=== PATIENT | female | born 1995 | race African-American/Black ===

== ENCOUNTER 2017-10-21 09:05 | Emergency (ER) | payer OTHER ==
[2017-10-21 09:54] LABS: BILIRUBIN,URINE NEGATIVE (NEGATIVE); GLUCOSE, URINE (UA) NEGATIVE (NEGATIVE); KETONES,URINE (UA) NEGATIVE (NEGATIVE); LEUKOCYTE ESTERASE, URINE NEGATIVE (NEGATIVE); NITRITE,URINE NEGATIVE (NEGATIVE); OCCULT BLOOD,URINE NEGATIVE (NEGATIVE); PROTEIN,URINE NEGATIVE (NEGATIVE); UROBILINOGEN,URINE 0.2 (NORMAL) E.U./dL (NORMAL)
[2017-10-21 09:58] LABS: CLARITY,URINE CLEAR (CLEAR)
--- NOTE | 2017-10-21 10:11 | ED Physician Documentation ---
History of Present Illness - Stated complaint Stated Complaint: FEMALE -6 WKS - Chief complaint Chief Complaint: Abd Pain - Additonal information Additional information: hx from pt 22 f AD Prien miscarriage approx 2 years ago LMP 09/08/17 + HCG to ED with two weeks light spotting and cramping no prenantal care yet no fever + NV Review of Systems Constitutional: denies: Fever, Chills Cardiac: denies: Chest pain / pressure Respiratory: denies: Dyspnea GI: reports: Abdominal Pain, Nausea, Vomiting : reports: Vaginal bleeding, Now EGA PD PAST MEDICAL HISTORY - Past Medical History Past Medical History: No - Past Surgical History Past Surgical History: No - Present Medications Home Medications: Ambulatory Orders Medication Instructions Recorded Confirmed Pnv No.121/Iron/Folic Acid 1 each PO DAILY #30 tablet 10/21/17 [ Multivitamin Tablet] - Allergies Allergies/Adverse Reactions: Allergies Allergy/AdvReac Type Severity Reaction Status Date / Time No Known Drug Allergies Allergy Verified 10/21/17 09:17 - Social History Does the pt smoke?: No Smoking Status: Never smoker PD ED PE NORMAL - Vitals Vital signs reviewed: Yes - Cardiac Cardiac: RRR - Respiratory Respiratory: No respiratory distress, Clear bilaterally - Abdomen Abdomen: Soft, Other (TTP low abd s rebound or gaurding) - Neuro Neuro: Alert and oriented X 3 Results - Vitals Vitals: Vital Signs - 24 hr 10/21/17 10/21/17 09:13 10:53 Temperature 36.7 C Heart Rate 78 63 Respiratory 17 18 Rate Blood Pressure 113/63 108/67 O2 Saturation 100 100 Oxygen O2 Source Room air - Labs Labs: Laboratory Tests 10/21/17 10/21/17 10/21/17 09:35 10:15 10:15 HCG, Quant 958003.00 Urine Color YELLOW Urine Clarity CLEAR Urine pH 7.0 Ur Specific [place] <=1.005 Urine Protein NEGATIVE Urine Glucose (UA) NEGATIVE Urine Ketones NEGATIVE Urine Occult Blood NEGATIVE Urine Nitrite NEGATIVE Urine Bilirubin NEGATIVE Urine Urobilinogen 0.2 (NORMAL) Ur Leukocyte Esterase NEGATIVE Ur Microscopic Review NOT INDICATED Urine Culture Comments NOT INDICATED Blood Type B POSITIVE - Rads (name of study) OB sono Radiology: See rad report (IUP twins with FHR, small perigastational hemorrhage fetus Am 6+3) PD MEDICAL DECISION MAKING - ED course ED course: AZIZA performed issue identified= twin IUP with small perigestational hemorrhage no life limb vision threatening infection or injury identified - no ectopic, no heavy bleeding or infection on exam cannnot prevent if progress to miscarriage d/w pt feel pt stable and safe for dc - Sepsis Event Vital Signs: Vital Signs - 24 hr 10/21/17 10/21/17 09:13 10:53 Temperature 36.7 C Heart Rate 78 63 Respiratory 17 18 Rate Blood Pressure 113/63 108/67 O2 Saturation 100 100 Oxygen O2 Source Room air Departure - Departure Disposition: Home, Self Care Clinical Impression: Threatened miscarriage Twin Qualifiers: Multiple gestation type: unspecified Trimester: first trimester Qualified Code( s): O30.001 - Twin , unspecified number of placenta and unspecified number of amniotic sacs, first trimester Condition: Good Instructions: ED Care, ED Miscarriage Poss Follow-Up: MILAN Devang Rodríguez [Provider Group] Prescriptions: Pnv No.121/Iron/Folic Acid [ Multivitamin Tablet] 1 each PO DAILY #30 tablet Comments: You are with twins You are 6 weeks and 3 days along Your blood type is B + There is a small amount of bleding around twin A - right now the fetus has a heart beat and looks fine but there is a possibility this could progress to a miscarriage - close follow up with OB at [facility] is important Take the vitamins Rest and drink plenty of fluids Follow up with your command for duty status
--- NOTE | 2017-10-21 13:42 | Ultrasound Report ---
Procedure Date: 10/21/2017 Accession Number: [id number] / [id number] Procedure: US - OB First Trimester CPT Code: FULL RESULT: EXAM: OB Transvaginal, OB First Trimester DATE: 10/21/2017 12:24 PM CLINICAL HISTORY: 6 weeks EGA pain and bleed TECHNIQUE: Real-time scanning was performed with inside outside sales representative static images obtained. COMPARISON: None FINDINGS: The patient reports a last menstrual period of 09/08/2017 for a gestational age of 6 weeks and 1 day. Within the normal appearing uterus reside to separate intrauterine gestations. A: Gestation A demonstrates a mean gestational sac diameter of 19.8 mm, estimated gestational age 6 weeks 3 days. The crown-rump length is 4.6 mm for estimated gestational age of 6 weeks 1 day. The heart rate is 114 bpm and the yolk sac measures 3 mm. There is a small perigestational hemorrhage measuring up to 7.3 mm. B: Gestation B demonstrates a mean gestational sac diameter of 17.3 mm for an estimated gestational age of 6 weeks and 0 days. The embryo demonstrates a crown-rump length of 5.7 mm for estimated gestational age of 6 weeks and 3 days. The heart rate is 110 bpm and the yolk sac measures 12 mm. No perigestational fluid collection is detected. The right ovary measures 4.3 x 3.2 x 2.7 cm for a volume of 19.4 mL and contains 2.8 x 2.1 x 2.4 cm corpus luteal cyst. IMPRESSION: There are 2 intrauterine viable gestations with estimated gestational ages of 6 weeks 3 days and 6 weeks 1 day by crown-rump length respectively. Twin A demonstrates a 7 mm. Gestational hemorrhage, close interval follow-up is recommended.
--- NOTE | 2017-10-21 13:42 | Ultrasound Report ---
Procedure Date: 10/21/2017 Accession Number: [id number] / [id number] Procedure: US - OB Transvaginal CPT Code: FULL RESULT: EXAM: OB Transvaginal, OB First Trimester DATE: 10/21/2017 12:24 PM CLINICAL HISTORY: 6 weeks EGA pain and bleed TECHNIQUE: Real-time scanning was performed with ambulatory service representative static images obtained. COMPARISON: None FINDINGS: The patient reports a last menstrual period of 09/08/2017 for a gestational age of 6 weeks and 1 day. Within the normal appearing uterus reside to separate intrauterine gestations. A: Gestation A demonstrates a mean gestational sac diameter of 19.8 mm, estimated gestational age 6 weeks 3 days. The crown-rump length is 4.6 mm for estimated gestational age of 6 weeks 1 day. The heart rate is 114 bpm and the yolk sac measures 3 mm. There is a small perigestational hemorrhage measuring up to 7.3 mm. B: Gestation B demonstrates a mean gestational sac diameter of 17.3 mm for an estimated gestational age of 6 weeks and 0 days. The embryo demonstrates a crown-rump length of 5.7 mm for estimated gestational age of 6 weeks and 3 days. The heart rate is 110 bpm and the yolk sac measures 12 mm. No perigestational fluid collection is detected. The right ovary measures 4.3 x 3.2 x 2.7 cm for a volume of 19.4 mL and contains 2.8 x 2.1 x 2.4 cm corpus luteal cyst. IMPRESSION: There are 2 intrauterine viable gestations with estimated gestational ages of 6 weeks 3 days and 6 weeks 1 day by crown-rump length respectively. Twin A demonstrates a 7 mm. Gestational hemorrhage, close interval follow-up is recommended.
[2017-10-21 14:12] VITALS: BP 140/80
== END 2017-10-21 14:12 | disposition home or self-care (01) ==
LOC: ED 09:05
DX: O20.0 Threatened abortion (principal); O30.001 Twin pregnancy, unspecified number of placenta and unspecified number of amniotic sacs, first trimester; Z3A.01 Less than 8 weeks gestation of pregnancy
CPT/HCPCS: 76801; 76817; 81001; 81003; 84702; 86900; 86901; 87086; 87491; 87591; 99283

== ENCOUNTER 2017-10-23 11:47 | Emergency (ER) | payer OTHER ==
[2017-10-23 12:42] LABS: BILIRUBIN,URINE NEGATIVE (NEGATIVE); GLUCOSE, URINE (UA) NEGATIVE (NEGATIVE); KETONES,URINE (UA) NEGATIVE (NEGATIVE); LEUKOCYTE ESTERASE, URINE NEGATIVE (NEGATIVE); NITRITE,URINE NEGATIVE (NEGATIVE); OCCULT BLOOD,URINE SMALL (NEGATIVE); PROTEIN,URINE NEGATIVE (NEGATIVE); UROBILINOGEN,URINE 0.2 (NORMAL) E.U./dL (NORMAL)
[2017-10-23 12:51] LABS: BACTERIA,URINE None Seen /HPF (None Seen); CLARITY,URINE CLEAR (CLEAR); RBC,URINE 0-5 /HPF (0-5); SQUAMOUS EPITHELIAL CELL,UR RARE Squamous (<= Few)
--- NOTE | 2017-10-23 12:53 | ED Physician Documentation ---
History of Present Illness - Stated complaint Stated Complaint: FEM BLEEDING/6 WKS - Chief complaint Chief Complaint: General - History obtained from History obtained from: Patient - History of Present Illness Timing: Today Pain level max: 0 Pain level now: 0 Improved by: nothing Worsened by: nothing - Additonal information Additional information: Patient is a 22-year-old female, 2 para 0. She was seen here 2 days ago for vaginal bleeding. Found to have a intrauterine gestation with twins. There was a eladio-gestational hemorrhage at that time. She states she has increased bleeding today. Did not pass any clots that she is aware of. Has had one prior miscarriage. Patient has not yet followed up with [facility] [employer] [facility]. Review of Systems Constitutional: denies: Fever, Chills Respiratory: denies: Cough GI: reports: Nausea. denies: Vomiting, Diarrhea : denies: Dysuria, Frequency, Hesitancy Skin: denies: Rash Musculoskeletal: denies: Neck pain, Back pain Neurologic: denies: Headache PD PAST MEDICAL HISTORY - Past Medical History Past Medical History: No - Past Surgical History Past Surgical History: No - Present Medications Home Medications: Ambulatory Orders Medication Instructions Recorded Confirmed Pnv No.121/Iron/Folic Acid 1 each PO DAILY #30 tablet 10/21/17 [ Multivitamin Tablet] - Allergies Allergies/Adverse Reactions: Allergies Allergy/AdvReac Type Severity Reaction Status Date / Time No Known Drug Allergies Allergy Verified 10/21/17 09:17 - Social History Does the pt smoke?: No Smoking Status: Never smoker Does the pt drink ETOH?: No Does the pt have substance abuse?: No - Immunizations Immunizations are current?: Yes - POLST Patient has POLST: No PD ED PE NORMAL - Vitals Vital signs reviewed: Yes - General General: Alert and oriented X 3, No acute distress - HEENT HEENT: Moist mucous membranes - Neck Neck: Supple, no meningeal sign - Cardiac Cardiac: RRR - Respiratory Respiratory: No respiratory distress, Clear bilaterally - Abdomen Abdomen: Soft, Non tender, Non distended - Female Female : Pt declined - Back Back: No CVA TTP - Derm Derm: Warm and dry - Extremities Extremities: No edema - Neuro Neuro: Alert and oriented X 3 - Psych Psych: Normal mood, Normal affect Results - Vitals Vitals: Vital Signs - 24 hr 07/10/23/17 10/23/17 11:51 13:14 15:05 Temperature 36.6 C Heart Rate 81 68 69 Respiratory 14 15 14 Rate Blood Pressure 117/75 113/59 L 108/66 O2 Saturation 98 98 100 Oxygen O2 Source Room air - Labs Labs: Laboratory Tests 10/23/17 10/23/17 10/23/17 12:20 12:46 12:46 WBC 8.8 RBC 3.76 L Hgb 13.1 Hct 37.3 MCV 99.2 H MCH 34.7 H MCHC 35.0 RDW 11.4 L Plt Count 192 MPV 9.8 Neut # (Auto) 6.0 Lymph # (Auto) 2.0 [place] # (Auto) 0.7 Eos # (Auto) 0.0 Baso # (Auto) 0.0 Absolute Nucleated RBC 0.00 Nucleated RBC % 0.0 HCG, Quant [id number] Urine Color YELLOW Urine Clarity CLEAR Urine pH 7.0 Ur Specific [place] <=1.005 Urine Protein NEGATIVE Urine Glucose (UA) NEGATIVE Urine Ketones NEGATIVE Urine Occult Blood SMALL H Urine Nitrite NEGATIVE Urine Bilirubin NEGATIVE Urine Urobilinogen 0.2 (NORMAL) Ur Leukocyte Esterase NEGATIVE Urine RBC 0-5 Urine WBC 0-3 Ur Squamous Epith Cells RARE Squamous Urine Bacteria None Seen Ur Microscopic Review INDICATED Urine Culture Comments NOT INDICATED - Rads (name of study) pelvic US Radiology: Prelim report reviewed, EMP read contemporaneously, See rad report ( Viable twin dichorionic diamniotic intrauterine at EGA 6 weeks 3 days with AUGUSTIN 06/15/2018 based on LMP. Twin A crown-rump length corresponds to a gestational age of 6 weeks 4 days and twin B crown-rump length corresponds to a gestational age of 6 weeks 2 days today, concordant with clinical dates.. Small perigestational bleed between the gestational sacs. ) PD MEDICAL DECISION MAKING - ED course Complexity details: reviewed old records (last Ed visit), reviewed results, re- evaluated patient, considered differential, d/w patient, d/w network consultant ED course: Patient is a 22-year-old female who is approximately 6 weeks with vaginal bleeding. Discussed case with Dr. Maciel, [facility] [employer] [facility] who recommends repeat ultrasound today. HCG is increasing and does appear to have a viable twin on ultrasound. Will follow up in the office on Wednesday. Results were reviewed with the patient. Patient counseled regarding signs and symptoms for which I believe and urgent re-evaluation would be necessary. Patient with good understanding of and agreement to plan and is comfortable going home at this time This document was made in part using voice recognition software. While efforts are made to proofread this document, sound alike and grammatical errors may occur. - Sepsis Event Vital Signs: Vital Signs - 24 hr 10/23/17 10/23/17 10/23/17 11:51 13:14 15:05 Temperature 36.6 C Heart Rate 81 68 69 Respiratory 14 15 14 Rate Blood Pressure 117/75 113/59 L 108/66 O2 Saturation 98 98 100 Oxygen O2 Source Room air Departure - Departure Disposition: 01 Home, Self Care Clinical Impression: Threatened miscarriage Twin Qualifiers: Multiple gestation type: unspecified Trimester: first trimester Qualified Code( s): O30.001 - Twin , unspecified number of placenta and unspecified number of amniotic sacs, first trimester Condition: Good Instructions: ED Miscarriage Poss Follow-Up: Nirali Maciel MD [Provider Admit Priv/Credential] - Within 3 Days Comments: Return if you worsen. I spoke with Dr. Maciel today and she would like you to call the OB clinic on wednesday AM and be seen wednesday or wednesday. Discharge Date/Time: 10/23/17 15:08
[2017-10-23 12:55] LABS: BASOPHILS % (AUTO) 0.5 %; EOSINOPHILS % (AUTO) 0.4 %; HGB - HEMOGLOBIN 13.1 g/dL (12.0-16.0); LYMPHOCYTES % (AUTO) 22.7 %; MEAN CORPUSCULAR HEMOGLOBIN 34.7 pg (27.0-31.0); MEAN CORPUSCULAR VOLUME 99.2 fL (81.0-99.0); MEAN PLATELET VOLUME 9.8 fL (7.9-10.8); MONOCYTES # (AUTO) 0.7 10^3/uL (0.0-1.0); MONOCYTES % (AUTO) 8.5 %; NEUTROPHILS % (AUTO) 67.9 %; PLT - PLATELET COUNT 192 10^3/uL (130-450); RED BLOOD COUNT 3.76 10^6/uL (4.20-5.40); RED CELL DISTRIBUTION WIDTH 11.4 % (12.0-15.0); WHITE BLOOD COUNT 8.8 x10^3/uL (4.8-10.8)
[2017-10-23 15:05] VITALS: BP 108/66
--- NOTE | 2017-10-23 15:19 | Ultrasound Report ---
Procedure Date: 10/23/2017 Accession Number: [id number] / [id number] Procedure: US - OB First Trimester CPT Code: FULL RESULT: EXAM: FIRST TRIMESTER OBSTETRIC ULTRASOUND - TWINS (Less than 11 weeks) EXAM DATE: 10/23/2017 02:51 PM. CLINICAL HISTORY: . Vaginal bleeding. LMP: 09/08/2017. COMPARISONS: None. TECHNIQUE: Transabdominal and transvaginal ultrasound examination with static image documentation. CLINICAL DATES: EGA 6 weeks 3 days with AUGUSTIN 06/15/2018 based on LMP 09/08/2017. ASSESSMENT: Twin intrauterine , dichorionic/diamniotic. TWIN A: Mean gestational sac diameter: 24 mm = 7 weeks 0 days. Embryo: CRL (crown-rump length) 7 mm = 6 weeks 4 days. Cardiac activity: 116 beats per minute. Yolk sac: 4 mm. Amniotic fluid: Not accurately assessed at this gestational age. Early placenta: Not visible at this gestational age. TWIN B: Mean gestational sac diameter: 15 mm = 5 weeks 5 days. Embryo: CRL (crown-rump length) 5 mm = 6 weeks 2 days. Cardiac activity: 114 beats per minute. Yolk sac: 3 mm. Amniotic fluid: Not accurately assessed at this gestational age. Early placenta: Not visible at this gestational age. Other: Small hypoechoic collection between the gestational sacs measuring 1.8 x 0.4 x 1.1 cm. MATERNAL STRUCTURES: Uterus: Retroverted. Right anterior fibroid measuring 3.4 x 2.1 x 2.6 cm. Cervix: Closed. Right Ovary/Adnexa: The ovary measures 5.6 x 3.5 x 4.2 cm, volume 4.3 cc. Contains 2 corpus luteum cysts measuring 2.2 cm and 3.2 cm, respectively. Left Ovary/Adnexa: The ovary measures 3.1 x 1.5 x 2.0 cm, volume 4.8 cc. Free Fluid: None. Other: None. IMPRESSION: 1. Viable twin dichorionic diamniotic intrauterine at EGA 6 weeks 3 days with AUGUSTIN 06/15/2018 based on LMP. 2.Twin A crown-rump length corresponds to a gestational age of 6 weeks 4 days and twin B crown-rump length corresponds to a gestational age of 6 weeks 2 days today, concordant with clinical dates.. 3. Small perigestational bleed between the gestational sacs. RADIA
== END 2017-10-23 15:08 | disposition home or self-care (01) ==
LOC: ED 11:47
DX: O20.0 Threatened abortion (principal); O30.001 Twin pregnancy, unspecified number of placenta and unspecified number of amniotic sacs, first trimester; Z3A.01 Less than 8 weeks gestation of pregnancy
CPT/HCPCS: 36415; 76801; 76830; 81001; 81003; 84702; 85025; 87086; 99283

== ENCOUNTER 2017-11-04 21:56 | Emergency (ER) | payer OTHER ==
[2017-11-04] MEDS ORDERED: METOCLOPRAMIDE 10 MG/2 ML VIAL IVP STA (22:06)
[2017-11-04] MEDS ORDERED: SODIUM CHLORIDE 0.9% 1,000 ML IV ONE (22:06)
[2017-11-04] MEDS ORDERED: ACETAMINOPHEN 500 MG TABLET PO STA (22:19)
--- NOTE | 2017-11-04 22:25 | ED Physician Documentation ---
History of Present Illness - Stated complaint Stated Complaint: 8WKS PREG/VOMITING BLOOD - Chief complaint Chief Complaint: Abd Pain - History obtained from History obtained from: Patient - Additonal information Additional information: 22-year-old female at roughly 8 weeks presents the emergency department with lower abdominal cramping and vomiting over the past several weeks. The patient denies dysuria or vaginal bleeding or vaginal discharge. The patient denies any focal area of abdominal pain. The patient does report blood streaks in her vomit occasionally. The patient reports being dehydrated. Symptoms are described as moderate. No relieving factors. No other associated symptoms. 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) - Past Surgical History Past Surgical History: Yes /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: Dilation and currettage - Present Medications Home Medications: Ambulatory Orders Medication Instructions Recorded Confirmed Pnv No.121/Iron/Folic Acid 1 each PO DAILY #30 tablet 10/21/17 [ Multivitamin Tablet] Metoclopramide [Reglan] 10 mg PO Q6H PRN #30 tablet 11/05/17 - Allergies Allergies/Adverse Reactions: Allergies Allergy/AdvReac Type Severity Reaction Status Date / Time No Known Drug Allergies Allergy Verified 11/04/17 22:01 - Social History Does the pt smoke?: No Smoking Status: Never smoker Does the pt drink ETOH?: No Does the pt have substance abuse?: No - Immunizations Immunizations are current?: Yes - POLST Patient has POLST: No PD ED PE NORMAL - General General: Alert and oriented X 3, No acute distress - HEENT HEENT: Atraumatic, PERRL, EOMI, Ears normal - Neck Neck: Supple, no meningeal sign - Cardiac Cardiac: RRR, Strong equal pulses - Respiratory Respiratory: No respiratory distress - Abdomen Abdomen: Soft, Non tender, Non distended - Derm Derm: Normal color - Extremities Extremities: No deformity, No edema - Neuro Neuro: Alert and oriented X 3, Normal speech - Psych Psych: Normal mood Results - Vitals Vitals: Vital Signs - 24 hr 11/04/17 11/05/17 21:59 00:35 Temperature 37.4 C 36.8 C Heart Rate 97 88 Respiratory 22 16 Rate Blood Pressure 126/84 H 120/72 O2 Saturation 100 98 Oxygen O2 Source Room air - Labs Labs: Laboratory Tests 11/04/17 11/04/17 11/04/17 22:04 22:10 22:30 WBC 11.3 H RBC 4.02 L Hgb 13.6 Hct 39.5 MCV 98.2 MCH 33.9 H MCHC 34.5 RDW 11.5 L Plt Count 181 MPV 10.4 Neut # (Auto) 8.8 H Lymph # (Auto) 1.6 [place] # (Auto) 0.8 Eos # (Auto) 0.0 Baso # (Auto) 0.0 Absolute Nucleated RBC 0.00 Nucleated RBC % 0.0 Sodium Potassium Chloride Carbon Dioxide Anion Gap BUN Creatinine Estimated GFR (MDRD) Glucose Calcium Total Bilirubin AST ALT Alkaline Phosphatase Total Protein Albumin Globulin Albumin/Globulin Ratio Lipase HCG, Quant Urine Color DARK YELLOW Urine Clarity CLEAR Urine pH 6.0 Ur Specific [place] >=1.030 H Urine Protein 100 H Urine Glucose (UA) NEGATIVE Urine Ketones >=80 H Urine Occult Blood NEGATIVE Urine Nitrite NEGATIVE Urine Bilirubin NEGATIVE Urine Urobilinogen 1 (NORMAL) Ur Leukocyte Esterase NEGATIVE Urine RBC 0-5 Urine WBC 0-3 Ur Squamous Epith Cells MANY Squamous H Urine Bacteria Few Urine Mucus Moderate Strands Ur Microscopic Review INDICATED Urine Culture Comments NOT INDICATED Blood Type B POSITIVE Antibody Screen NEGATIVE 11/04/17 11/04/17 22:44 22:44 WBC RBC Hgb Hct MCV MCH MCHC RDW Plt Count MPV Neut # (Auto) Lymph # (Auto) [place] # (Auto) Eos # (Auto) Baso # (Auto) Absolute Nucleated RBC Nucleated RBC % Sodium 136 Potassium 3.1 L Chloride 98 L Carbon Dioxide 24 Anion Gap 14.0 H BUN 14 Creatinine 0.7 Estimated GFR (MDRD) 127 Glucose 91 Calcium 9.6 Total Bilirubin 1.3 H AST 35 ALT 29 Alkaline Phosphatase 47 Total Protein 8.1 Albumin 4.2 Globulin 3.9 Albumin/Globulin Ratio 1.1 Lipase 58 H HCG, Quant [id number] Urine Color Urine Clarity Urine pH Ur Specific [place] Urine Protein Urine Glucose (UA) Urine Ketones Urine Occult Blood Urine Nitrite Urine Bilirubin Urine Urobilinogen Ur Leukocyte Esterase Urine RBC Urine WBC Ur Squamous Epith Cells Urine Bacteria Urine Mucus Ur Microscopic Review Urine Culture Comments Blood Type Antibody Screen - Rads (name of study) OB US Radiology: Final report received PD MEDICAL DECISION MAKING - ED course ED course: On reevaluation the patient resting comfortably and her symptoms are under much better control. The patient appears appropriate for discharge home and outpatient management. I discussed with the patient the findings, the patient is scheduled to see her OB this coming Wednesday. The patient will be prescribed medications to help manage her symptoms as an outpatient. The blood in the vomit is most likely from the retching and Cony-Ojeda tears. There is no evidence of an upper GI bleed that would necessitate further workup in the emergency department. I discussed with the patient the findings and plan and the patient is comfortable with this plan. I discussed warning signs and recommended returning to the emergency department immediately for any worsening or any concerns. - Sepsis Event Vital Signs: Vital Signs - 24 hr 11/04/17 11/05/17 21:59 00:35 Temperature 37.4 C 36.8 C Heart Rate 97 88 Respiratory 22 16 Rate Blood Pressure 126/84 H 120/72 O2 Saturation 100 98 Oxygen O2 Source Room air Departure - Departure Disposition: Home, Self Care Clinical Impression: Abdominal pain affecting Vomiting Qualifiers: Vomiting type: unspecified Vomiting Intractability: non-intractable Nausea presence: with nausea Qualified Code(s): R11.2 - Nausea with vomiting, unspecified Twin Qualifiers: Multiple gestation type: unspecified Trimester: first trimester Qualified Code( s): O30.001 - Twin , unspecified number of placenta and unspecified number of amniotic sacs, first trimester Cyst of ovary Qualifiers: Laterality: unspecified laterality Qualified Code(s): N83.209 - Unspecified ovarian cyst, unspecified side Condition: Good Instructions: Abdominal Pain, ED Preg Morning Sickness, ED Nausea Vomiting Prescriptions: Metoclopramide [Reglan] 10 mg PO Q6H PRN #30 tablet PRN Reason: Nausea / Vomiting Comments: Please follow-up with your OB as scheduled. Please return to the emergency department immediately for worsening symptoms or any concerns
[2017-11-04 22:41] LABS: BASOPHILS % (AUTO) 0.1 %; EOSINOPHILS % (AUTO) 0.1 %; HGB - HEMOGLOBIN 13.6 g/dL (12.0-16.0); LYMPHOCYTES # (AUTO) 1.6 10^3/uL (1.5-3.5); LYMPHOCYTES % (AUTO) 14.4 %; MEAN CORPUSCULAR HEMOGLOBIN 33.9 pg (27.0-31.0); MEAN CORPUSCULAR HGB CONC 34.5 g/dL (32.0-36.0); MEAN CORPUSCULAR VOLUME 98.2 fL (81.0-99.0); MEAN PLATELET VOLUME 10.4 fL (7.9-10.8); MONOCYTES # (AUTO) 0.8 10^3/uL (0.0-1.0); MONOCYTES % (AUTO) 7.1 %; NEUTROPHILS # (AUTO) 8.8 10^3/uL (1.5-6.6); NEUTROPHILS % (AUTO) 78.3 %; PLT - PLATELET COUNT 181 10^3/uL (130-450); RED BLOOD COUNT 4.02 10^6/uL (4.20-5.40); RED CELL DISTRIBUTION WIDTH 11.5 % (12.0-15.0); WHITE BLOOD COUNT 11.3 x10^3/uL (4.8-10.8)
[2017-11-04 23:02] LABS: GLUCOSE, URINE (UA) NEGATIVE (NEGATIVE); KETONES,URINE (UA) >=80 mg/dL (NEGATIVE); LEUKOCYTE ESTERASE, URINE NEGATIVE (NEGATIVE); NITRITE,URINE NEGATIVE (NEGATIVE); OCCULT BLOOD,URINE NEGATIVE (NEGATIVE); PROTEIN,URINE 100 mg/dL (NEGATIVE); UROBILINOGEN,URINE 1 (NORMAL) E.U./dL (NORMAL)
[2017-11-04 23:11] LABS: BILIRUBIN,URINE NEGATIVE (NEGATIVE); CLARITY,URINE CLEAR (CLEAR); ICTOTEST,URINE NEGATIVE
[2017-11-04 23:16] LABS: BACTERIA,URINE Few /HPF (None Seen); MUCUS,URINE Moderate Strands; RBC,URINE 0-5 /HPF (0-5); SQUAMOUS EPITHELIAL CELL,UR MANY Squamous (<= Few)
[2017-11-04 23:39] LABS: ALBUMIN 4.2 g/dL (3.2-5.5); ALBUMIN/GLOBULIN RATIO 1.1 (1.0-2.2); BILIRUBIN,TOTAL 1.3 mg/dL (0.2-1.0); CREATININE 0.7 mg/dL (0.4-1.0); TOTAL PROTEIN 8.1 g/dL (6.7-8.2)
[2017-11-04 23:42] LABS: CALCIUM 9.6 mg/dL (8.5-10.3)
--- NOTE | 2017-11-05 00:15 | Ultrasound Report ---
Procedure Date: 11/04/2017 Accession Number: [id number] / [id number] Procedure: US - OB First Trimester CPT Code: FULL RESULT: EXAM: FIRST TRIMESTER OBSTETRIC ULTRASOUND (Less than 11 weeks) EXAM DATE: 11/04/2017 11:19 PM. CLINICAL HISTORY: with pain. Gestation. LMP: 09/08/2017. COMPARISONS: OB FIRST TRIMESTER 10/23/2017. TECHNIQUE: Transabdominal ultrasound examination with static image documentation. CLINICAL DATES: EGA 8 weeks 1 day with AUGUSTIN 06/15/2018 based on LMP. ASSESSMENT: Twin A: Gestational Sac: Twin intrauterine. Mean gestational sac diameter: 34.2 mm = 8 weeks 3 days. Embryo: CRL (crown-rump length) 19.8 mm = 80 weeks 4 days. Cardiac activity: 154 beats per minute. Yolk sac: 4 mm. Amniotic fluid: Not accurately assessed at this gestational age. Early placenta: Anterior. Other: Fluid collection between the gestational sacs measuring 20 x 10 mm. Twin B: Gestational Sac: Twin intrauterine. Mean gestational sac diameter: 30.2 mm = 7 weeks 6 days. Embryo: CRL (crown-rump length) 19.1 mm = 80 weeks 3 days. Cardiac activity: 171 beats per minute. Yolk sac: 3.3 mm. Amniotic fluid: Not accurately assessed at this gestational age. Early placenta: Anterior. Other: Fluid collection between the gestational sacs measuring 20 x 10 mm. MATERNAL STRUCTURES: Uterus: Anteverted. Unremarkable. Cervix: Closed. Right Ovary/Adnexa: Cyst measuring 3.0 x 2.6 x 1.6 cm. The ovary measures 5.3 x 3.0 x 2.5 cm, volume 21 cc. Left Ovary/Adnexa: Unremarkable. The ovary measures 2.4 x 1.3 x 1.6 cm, volume 2.6 cc. Free Fluid: None. Other: None. IMPRESSION: 1. Twin viable intrauterine at EGA 8 weeks 4 days for twin A and a weeks 3 days for twin B based on crown-rump length, which is concordant with clinical dates. 2. Assigned dating is AUGUSTIN 06/15/2018 based on LMP. 3. Mildly prominent right ovary measuring 21 cc with cyst measuring 3.0 x 2.6 x 1.6 cm. 4. Fluid collection between the gestational sacs measuring 20 x 10 mm. RADIA
[2017-11-05 00:36] VITALS: BP 120/72
== END 2017-11-05 00:36 | disposition home or self-care (01) ==
LOC: ED 21:56
DX: O26.891 Other specified pregnancy related conditions, first trimester (principal); R10.9 Unspecified abdominal pain; O21.9 Vomiting of pregnancy, unspecified; O34.81 Maternal care for other abnormalities of pelvic organs, first trimester; O30.001 Twin pregnancy, unspecified number of placenta and unspecified number of amniotic sacs, first trimester; N83.209 Unspecified ovarian cyst, unspecified side; Z3A.08 8 weeks gestation of pregnancy
CPT/HCPCS: 36415; 76801; 80053; 81001; 83690; 84702; 85025; 86850; 86900; 86901; 96361; 96374; 99283; A9270; J2765; 81003; 87086

== ENCOUNTER 2018-01-26 19:00 | Outpatient (CLI) | payer OTHER ==
[2018-01-26 19:46] VITALS: BP 116/61
[2018-01-26 20:02] LABS: BILIRUBIN,URINE NEGATIVE (NEGATIVE); GLUCOSE, URINE (UA) NEGATIVE (NEGATIVE); KETONES,URINE (UA) NEGATIVE (NEGATIVE); LEUKOCYTE ESTERASE, URINE NEGATIVE (NEGATIVE); NITRITE,URINE NEGATIVE (NEGATIVE); OCCULT BLOOD,URINE NEGATIVE (NEGATIVE); PROTEIN,URINE NEGATIVE (NEGATIVE); UROBILINOGEN,URINE 0.2 (NORMAL) E.U./dL (NORMAL)
[2018-01-26 20:11] LABS: BACTERIA,URINE None Seen /HPF (None Seen); CLARITY,URINE CLEAR (CLEAR); RBC,URINE None Seen /HPF (0-5); SQUAMOUS EPITHELIAL CELL,UR MANY Squamous (<= Few)
== END 2018-01-26 20:55 | disposition home or self-care (01) ==
LOC: WFO 19:00 → FBP 19:01 → WFO 20:55
PROVIDERS: ATTEND Obstetrics & Gynecology
DX: O30.042 Twin pregnancy, dichorionic/diamniotic, second trimester (principal); O26.892 Other specified pregnancy related conditions, second trimester; Z3A.20 20 weeks gestation of pregnancy
CPT/HCPCS: 81001; 99213

== ENCOUNTER 2018-01-28 20:28 | Outpatient (CLI) | payer OTHER ==
[2018-01-28 20:50] VITALS: BP 116/65
--- NOTE | 2018-01-29 00:49 | Ultrasound Report ---
Reason: check cervical length Procedure Date: 01/28/2018 Accession Number: [id number] / [id number] Procedure: US - OB Limited CPT Code: FULL RESULT: EXAM: LIMITED OBSTETRICAL ULTRASOUND EXAM DATE: 01/28/2018 11:29 PM. CLINICAL HISTORY: Check cervical length. Contractions with twin gestation. Shortened cervical length is seen on outside examination. COMPARISON: None. TECHNIQUE: Real-time sonographic evaluation of the fetus performed by the sandwich peddler. Multiple claims customer service representative static images were saved for review. Additional transvaginal imaging to more accurately evaluate cervical length/placental position/etc. FINDINGS: Established due date is 06/14/2018. Estimated gestational age is 20 weeks 3 days. Cervix appears closed measuring 2.0 cm. Twin A: Presentation: Maternal right side cephalic orientation. Placenta: Posterior. Amniotic fluid: MVP 4.8 cm. Cardiac activity: 140 bpm. Twin B: Presentation: Cephalic maternal left side. Placenta: Posterior. Amniotic fluid: MVP 5.4 cm. Cardiac activity: 152 bpm. IMPRESSION: 1. Twin live intrauterine gestation. 2. Cervix measures 2 cm. It appears closed. 3. Normal amniotic fluid volume. [facility]
== END 2018-01-29 01:35 | disposition home or self-care (01) ==
LOC: WFO 20:28 → FBP 20:30 → WFO 01-29 01:35
PROVIDERS: ATTEND Obstetrics & Gynecology
DX: O46.92 Antepartum hemorrhage, unspecified, second trimester (principal); Z3A.20 20 weeks gestation of pregnancy; O30.002 Twin pregnancy, unspecified number of placenta and unspecified number of amniotic sacs, second trimester
CPT/HCPCS: 76815; 99213